=== PATIENT | male | born 1935 | race Caucasian/White ===

== ENCOUNTER 2021-04-11 13:52 | Emergency (ER) | payer MEDICARE, OTHER ==
[2021-04-11] MEDS ORDERED: fentaNYL 100 MCG/2 ML SDV IVPUSH ONE ×3 (14:14→17:54)
--- NOTE | 2021-04-11 14:17 | EDM.PDOC ---
ED HPI GENERAL MEDICAL PROBLEM - General Chief Complaint: Lower Extremity Injury/Pain Stated Complaint: MEDICAL VIA [facility] Time Seen by Provider: 04/11/21 14:00 Source of Information: Reports: Patient, Family History Limitations: Reports: No Limitations - History of Present Illness INITIAL COMMENTS - FREE TEXT/NARRATIVE: This is an 85-year-old male presents with concerns of right hip pain. He reports that he was on his deck's afternoon when he slipped on some wet wood and landed on the right hip. He also struck the back of his head. He had no LOC. He is now concerned of severe pain in the right hip. He has been unable to ambulate due to the pain. He actually laid on the deck for about an hour before he was found by his , after which EMS was called and now presents to the ED. He denies any blood thinners. He does report history of CKD. Right Hip Pain Score (Numeric/FACES): 8 - Related Data Allergies Allergy/AdvReac Type Severity Reaction Status Date / Time allopurinol Allergy Sweating Verified 04/11/21 14:06 Penicillins Allergy Hives Verified 04/11/21 14:06 Sulfa (Sulfonamide Allergy Hives Verified 04/11/21 14:06 Antibiotics) Home Meds: Home Meds Aspirin [Halfprin] 81 mg PO DAILY 04/11/21 [History] Febuxostat [Uloric] 40 mg PO DAILY 04/11/21 [History] Simvastatin 40 mg PO DAILY 04/11/21 [History] Past Medical History HEENT History: Reports: Hard of Hearing Cardiovascular History: Reports: High Cholesterol, Hypertension Respiratory History: Reports: SOB Genitourinary History: Reports: Chronic Renal Insuffiency Musculoskeletal History: Reports: Gout Neurological History: Reports: None Psychiatric History: Reports: None Endocrine/Metabolic History: Reports: None Hematologic History: Reports: None Immunologic History: Reports: None Oncologic (Cancer) History: Reports: None 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 - Infectious Disease History Infectious Disease History: Reports: Measles Other Infectious Disease History: had covid vacc - Past Surgical History HEENT Surgical History: Reports: None GI Surgical History: Reports: Hernia Repair/Other Social & Family History - Tobacco Use Tobacco Use Status *Q: Former Tobacco User Used Tobacco, but Quit: Yes Month/Year Tobacco Last Used: - Caffeine Use Caffeine Use: Reports: Coffee Caffeine Use Comment: 1-2 day - Recreational Drug Use Recreational Drug Use: No Review of Systems - Review of Systems Review Of Systems: See Below Constitutional: Reports: No Symptoms Eyes: Reports: No Symptoms Ears: Reports: No Symptoms Nose: Reports: No Symptoms Mouth/Throat: Reports: No Symptoms Respiratory: Reports: No Symptoms Cardiovascular: Reports: No Symptoms GI/Abdominal: Reports: No Symptoms Genitourinary: Reports: No Symptoms Musculoskeletal: Reports: Joint Pain. Denies: Neck Pain Skin: Reports: No Symptoms Neurological: Reports: No Symptoms. Denies: Headache Psychiatric: Reports: No Symptoms ED EXAM, GENERAL - Physical Exam Exam: See Below Exam Limited By: No Limitations General Appearance: Alert, Mild Distress Ears: Normal External Exam Nose: Normal Inspection Throat/Mouth: Normal Inspection Head: Atraumatic, Normocephalic Neck: Normal Inspection. No: Tender Midline Respiratory/Chest: No Respiratory Distress, Lungs Clear Cardiovascular: Regular Rate, Rhythm GI/Abdominal: Soft, Non-Tender Back Exam: Normal Inspection Extremities: Other (Right leg is externally rotated and foreshortened, tenderness with any palpation of the right hip.) Neurological: Alert, Oriented Psychiatric: Normal Affect, Normal Mood Skin Exam: Warm, Dry Course - Vital Signs Last Recorded V/S: Last Vital Signs Temp Pulse 62 04/11/21 16:03 Resp 16 04/11/21 14:45 BP 135/67 04/11/21 17:08 Pulse Ox 90 L 04/11/21 16:03 - Orders/Labs/Meds Orders: Active Orders 24 hr Category Date Time Status PATIENT RETYPE [BBK] Stat Lab 04/11/21 14:25 Results TYPE AND SCREEN [BBK] Stat Lab 04/11/21 14:25 Results Labs: Laboratory Tests 04/11/21 04/11/21 04/11/21 Range/Units 14:25 14:25 14:25 WBC 15.8 H (4.5-11.0) K/uL RBC 4.83 (4.30-5.90) M/uL Hgb 15.5 H (12.0-15.0) g/dL Hct 46.8 (40.0-54.0) % MCV 97 (80-98) fL MCH 32 H (27-31) pg MCHC 33 (32-36) % Plt Count 226 (150-400) K/uL Sodium 143 (140-148) mmol/L Potassium 4.1 (3.6-5.2) mmol/L Chloride 106 (100-108) mmol/L Carbon Dioxide 23 (21-32) mmol/L Anion Gap 14.1 H (5.0-14.0) mmol/L BUN 42 H (7-18) mg/dL Creatinine 2.0 H (0.8-1.3) mg/dL Est Cr Clr Drug Dosing 29.35 mL/min Estimated GFR (MDRD) 32 L (>60) Glucose 108 H (74-106) mg/dL Calcium 9.6 (8.5-10.1) mg/dL Blood Type O POSITIVE Gel Antibody Screen Negative Meds: Medications Discontinued Medications Generic Name Dose Route Start Last Admin Trade Name Freq PRN Reason Stop Dose Admin Fentanyl 100 mcg 04/11/21 14:14 04/11/21 14:18 Fentanyl 100 Mcg/2 Ml Sdv IVPUSH 04/11/21 14:15 100 mcg ONETIME ONE Administration Fentanyl 100 mcg 04/11/21 17:49 Fentanyl 100 Mcg/2 Ml Sdv IVPUSH 04/11/21 17:50 ONETIME ONE Fentanyl 75 mcg 04/11/21 17:54 04/11/21 17:57 Fentanyl 100 Mcg/2 Ml Sdv IVPUSH 04/11/21 17:55 75 mcg ONETIME ONE Administration Hydromorphone HCl 1 mg 04/11/21 15:13 04/11/21 15:20 Hydromorphone 1 Mg/Ml Syringe IVPUSH 04/11/21 15:14 1 mg ONETIME ONE Administration - Re-Assessments/Exams Free Text/Narrative Re-Assessment/Exam: This is an 85-year-old male who presents with right hip pain after mechanical fall. On exam he is noted to have stable vitals, as noted findings were concerning for possible hip fracture. No other traumatic injuries identified. X-ray the right hip confirms a femoral neck fracture. We did obtain a CT of the head & neck given his fall and head strike, unremarkable. Screening labs generally unremarkable, he does have history of CKD. He was administered IV fentanyl followed by a dose of Dilaudid for pain control. Unfortunately we do not have any orthopedic surgery available at our facility. He was therefore transferred to [place] for operative management. 04/11/21 18:42 Departure - Departure Time of Disposition: 17:00 Disposition: DC/Tfer to Acute Hospital 02 Clinical Impression: Fracture of neck of femur, hip - Discharge Information Referrals: PCP,None [Primary Care Provider] - Forms: ED Department Discharge Sepsis Event Note (ED) - Evaluation Sepsis Screening Result: No Definite Risk - Focused Exam Vital Signs: Vital Signs Pulse Pulse Resp BP BP Pulse Ox 04/11/21 17:08 135/67 04/11/21 16:03 62 122/66 90 L 04/11/21 14:45 66 16 149/75 H 95 04/11/21 14:10 65 145/80 H 93 L - My Orders Last 24 Hours: My Active Orders 04/11/21 14:25 PATIENT RETYPE [BBK] Stat TYPE AND SCREEN [BBK] Stat - Assessment/Plan Last 24 Hours: My Active Orders 04/11/21 14:25 PATIENT RETYPE [BBK] Stat TYPE AND SCREEN [BBK] Stat
[2021-04-11] MEDS ORDERED: HYDROmorphone 1 MG/ML Syringe IVPUSH ONE (15:13)
--- NOTE | 2021-04-11 15:16 | CT ---
Head wo Cont CLINICAL HISTORY: Fall, head trauma COMPARISON: None TECHNIQUE: Transverse scans were obtained from the base of the skull through the vertex without IV contrast on a multislice, multidetector CT scanner. Auto dosage reduction and iterative reconstruction techniques employed. FINDINGS: No focal abnormal parenchymal density is identified.. There is no mass effect, hemorrhage, or extraaxial collection. The basal cisterns and sulci over the convexities are prominent. The ventricles are prominent. IMPRESSION: Moderate age-related atrophy. No acute intracranial process
--- NOTE | 2021-04-11 15:23 | CT ---
Cervical Spine wo Cont CLINICAL HISTORY: Fall TECHNIQUE: Multiple CT sections were taken through the cervical spine in the transaxial projection. Coronal and sagittal views were reconstructed. Images were viewed at bone as well as soft tissue windows on a digital workstation. Auto dosage reduction and iterative reconstruction techniques employed. FINDINGS: There is mild anterior wedging of C4. Trabecular pattern appears intact. This is likely of remote chronology. There is moderate diffuse degenerative disc disease with spondylosis. There is minimal retrolisthesis 4 and C5 This is felt to be due to facet disease. Axial images show moderate uncovertebral joint spurring on the left at C3-4 causing moderate bony foraminal encroachment. There is bilateral bony foraminal encroachment seen at C4-5. There is bilateral bony foraminal encroachment at C5-6 and as well as broad-based disc osteophyte complex. This causes central canal stenosis. 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 This causes multiple levels neural foraminal encroachment described above. 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 There is minimal retrolisthesis of C4 and C5.
--- NOTE | 2021-04-11 15:24 | CR ---
Hip Min 2V or 3V w Pelvis Rt CLINICAL HISTORY: Hip pain, fall FINDINGS: There is a fracture of the low right femoral neck. Pelvis appears intact. There are degenerative changes in the lumbar spine. IMPRESSION: Slightly displaced femoral fracture on the right
== END 2021-04-11 18:03 ==
LOC: JP.ED 13:52
DX: S72.091A Other fracture of head and neck of right femur, initial encounter for closed fracture (principal); E78.00 Pure hypercholesterolemia, unspecified; I12.9 Hypertensive chronic kidney disease with stage 1 through stage 4 chronic kidney disease, or unspecified chronic kidney disease; N18.9 Chronic kidney disease, unspecified; Z79.82 Long term (current) use of aspirin; Z79.899 Other long term (current) drug therapy; Z87.891 Personal history of nicotine dependence; Z88.0 Allergy status to penicillin; Z88.1 Allergy status to other antibiotic agents; Z88.8 Allergy status to other drugs, medicaments and biological substances; W22.8XXA Striking against or struck by other objects, initial encounter
CPT/HCPCS: 36415; 70450; 72125; 73502; 80048; 85027; 86850; 86900; 86901; 96374; 96375; 96376; 99285; J1170; J3010